=== PATIENT | male | born 1955 | race Caucasian/White ===

== ENCOUNTER 2019-06-06 09:53 | Emergency (ER) | payer OTHER ==
[2019-06-06] MEDS ORDERED: NA CHLORIDE 0.9% 1,000 ML ONE ×2 (10:37→12:30)
[2019-06-06 10:39] LABS: Absolute Lymphocytes (CBC) 0.5 K/uL (0.7-4.9); Basophils % 0.4 % (0-1.3); Hematocrit 33.1 % (39.6-49.0); Lymphocytes % 9.1 % (15.3-44.8); RBC Red Blood Cell Count 3.17 M/uL (4.33-5.43)
[2019-06-06 10:40] LABS: Protime INR 1.11
--- NOTE | 2019-06-06 10:54 | RAD REPORT ---
EXAM DESCRIPTION: RAD - Chest Single View - 06/06/2019 10:37 am CLINICAL HISTORY: Cough, syncope, shortness of breath COMPARISON: None. TECHNIQUE: AP portable chest image was obtained 1034 hours . FINDINGS: Lungs are clear. Heart and vasculature are normal. No measurable pleural effusion and no p neumothorax. No acute bony abnormality seen. No acute aortic findings suspected. IMPRESSION: No acute cardiopulmonary process.
[2019-06-06 11:00] LABS: Blood Morphology Comment NOT SEEN (NOT SEEN); Platelet Estimate DECR; Urine White Blood Cell Casts OK
[2019-06-06 11:15] LABS: ALT/SGPT 33 U/L (12-78); AST/SGOT 19 U/L (15-37); Albumin 3.3 g/dL (3.4-5.0); Alkaline Phosphatase 126 U/L (45-117); BUN Blood Urea Nitrogen 16 mg/dL (7-18); Bicarbonate 26 mmol/L (21-32); Bilirubin Direct 0.1 mg/dL (0-0.2); Bilirubin Total 0.4 mg/dL (0.2-1.0); Glucose Level 256 mg/dL (74-106); Lipase 18 U/L (73-393); NT PRO-BNP 199 pg/mL (<125); Potassium 4.4 mmol/L (3.5-5.1); Protein, Total 6.8 g/dL (6.4-8.2); Sodium Level 140 mmol/L (136-145); Troponin (Emerg Dept Use Only) < 0.02 ng/mL (0.0-0.045)
--- NOTE | 2019-06-06 11:40 | RAD REPORT ---
EXAM DESCRIPTION: CT - Spine Lumbar Wo Con - 06/06/2019 11:16 am CLINICAL HISTORY: Fall, back pain COMPARISON: None. TECHNIQUE: Thin section axial imaging of the lumbar spine was performed. Sagittal and coronal recon struction images were generated and reviewed. All CT scans are performed using dose optimization technique as appropriate and may include automated exposure control or mA/KV adjustment according to patient size. FINDINGS: A lumbosacral transition body is present. This has been labeled L5 for the purposes of thi s study. More superior levels are labeled accordingly. Approximately 20% wedge compression fracture deformity seen in the T12 body. Posterior wall height is preserved. No encroachment into the central canal. This is acute or subacute in appearance and may w ell be attributed to the acute clinical event. No paraspinal mass or hematoma. No pathologic componen t. L1-L5 bodies are normal in height. There is a slight retrolisthesis of L4 on L5. Facet degenerative c hanges are present. No paraspinal mass. No pathologic component. T12-L1 disc level: No significant finding L1-L2 disc level: No herniation or significant disc bulge. No canal or foramen stenosis. Calcificatio n of the posterior ligaments noted with facet degenerative change. L2-3 disc level: Minimal broad-based bulging of disc material evident. No canal or foramen stenosis. Moderate severity facet degenerative change present with partial calcification of the posterior ligam ents. L3-4 level: Prominent bulging of disc material is present across the central canal and into each exit foramen. This is worse on the left. Advanced facet joint degenerative changes are present. Approxima tely 6 millimeter air density is present along the anterior margin of the right facet joint. This is part of degenerative disc disease. There is apparent a joint spaces of each facet. The extension into the central canal may be part of facet hypertrophy or part of a synovial cyst. Canal is 9 mm in the midline. Left greater than right foraminal stenosis is present. L4-5 level: There is a broad-based bulging of disc material across the central canal. Degenerative ga s is present in the disc space. Endplate hypertrophy is present. Bilateral foraminal encroachment cally nges are present without central spinal stenosis. Facet degenerative changes relatively mild. L5-S1 level: This fused or nonmovable disc level shows no significant finding. IMPRESSION: Acute or subacute 20% T12 compression fracture involving the superior endplate. T12 post erior wall is preserved. No canal encroachment. No other acute bone finding. Advanced degenerative change L3-4 level with mild central spinal stenosis and a left greater than rig ht foraminal stenosis. Patient has very advanced facet degenerative change with suspected air contain ing synovial cyst projecting into the central canal creating posterior right encroachment on the thec al sac. Prominent L4-5 degenerative disc disease and posterior element hypertrophy. Bilateral bony foraminal encroachment is present.
[2019-06-06] MEDS ORDERED: Magnesium Sulfate 2gm IVPB 2 G/50 ML BAG IV ONE (12:30)
[2019-06-06 12:34] LABS: Urine Blood TRACE (NEG); Urine Glucose 2+ (NEG); Urine Protein 1+ (NEG); Urine Specific Gravity 1.015 (1.005-1.030); Urine pH 6.5 (5.0-7.0)
[2019-06-06] MEDS ORDERED: FENTANYL CITR 100 MCG/2 ML ONE (12:52)
[2019-06-06] MEDS ORDERED: ONDANSETRON 4 MG/2 ML VIAL ONE (12:52)
--- NOTE | 2019-06-06 13:22 | EDPHYS ---
Physician Documentation [facility] Name: Momo Wang Age: 64 yrs Sex: Male : 1955 Arrival Date: 06/06/2019 Time: 09:55 Bed 14 Private MD: Unknown, Unknown ED Physician Garrick Valenzuela HPI: 06/06 10:18 This 64 yrs old Male presents to ER via Ambulatory with complaints of Fall cally Injury. 10:18 Details of fall: The patient fell from an upright position, while standing. Onset: The cally symptoms/episode began/occurred 1 day(s) ago. Associated injuries: The patient sustained injury to the low back, decreased range of motion, pain. Severity of symptoms: At their worst the symptoms were mild, moderate, in the emergency department the symptoms are unchanged. The patient has not experienced similar symptoms in the past. 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 - Social history:: Smoking status: Patient uses tobacco products, smokes one pack cigarettes per day. - Ebola Screening: : Patient denies travel to an Ebola-affected area in the 21 days before illness onset. - Family history:: not pertinent. ROS: 10:18 Constitutional: Negative for fever, chills, and weight loss, Eyes: Negative for injury, cally pain, redness, and discharge, ENT: Negative for injury, pain, and discharge, Neck: Negative for injury, pain, and swelling, Cardiovascular: Negative for chest pain, palpitations, and edema, Respiratory: Negative for shortness of breath, cough, wheezing, and pleuritic chest pain, Abdomen/GI: Negative for abdominal pain, nausea, vomiting, diarrhea, and constipation, : Negative for injury, bleeding, discharge, and swelling, MS/Extremity: Negative for injury and deformity, Skin: Negative for injury, rash, and discoloration, Psych: Negative for depression, anxiety, suicide ideation, homicidal ideation, and hallucinations, Allergy/Immunology: Negative for hives, rash, and allergies, Endocrine: Negative for neck swelling, polydipsia, polyuria, polyphagia, and marked weight changes, Hematologic/Lymphatic: Negative for swollen nodes, abnormal bleeding, and unusual bruising. 10:18 Back: Positive for decreased range of motion, pain at rest, pain with movement. 10:18 Neuro: Positive for dizziness, weakness. Exam: 10:18 Constitutional: This is a well developed, well nourished patient who is awake, alert, cally and in no acute distress. Head/Face: Normocephalic, atraumatic. Eyes: Pupils equal round and reactive to light, extra-ocular motions intact. Lids and lashes normal. Conjunctiva and sclera are non-icteric and not injected. Cornea within normal limits. Periorbital areas with no swelling, redness, or edema. ENT: Nares patent. No nasal discharge, no septal abnormalities noted. Tympanic membranes are normal and external auditory canals are clear. Oropharynx with no redness, swelling, or masses, exudates, or evidence of obstruction, uvula midline. Mucous membranes moist. Neck: Trachea midline, no thyromegaly or masses palpated, and no cervical lymphadenopathy. Supple, full range of motion without nuchal rigidity, or vertebral point tenderness. No Meningismus. Chest/axilla: Normal chest wall appearance and motion. Nontender with no deformity. No lesions are appreciated. Respiratory: Lungs have equal breath sounds bilaterally, clear to auscultation and percussion. No rales, rhonchi or wheezes noted. No increased work of breathing, no retractions or nasal flaring. Abdomen/GI: Soft, non-tender, with normal bowel sounds. No distension or tympany. No guarding or rebound. No evidence of tenderness throughout. Male : Normal genitalia with no discharge or lesions. Skin: Warm, dry with normal turgor. Normal color with no rashes, no lesions, and no evidence of cellulitis. MS/ Extremity: Pulses equal, no cyanosis. Neurovascular intact. Full, normal range of motion. Neuro: Awake and alert, GCS 15, oriented to person, place, time, and situation. Cranial nerves II-XII grossly intact. Motor strength 5/5 in all extremities. Sensory grossly intact. Cerebellar exam normal. Normal gait. Psych: Awake, alert, with orientation to person, place and time. Behavior, mood, and affect are within normal limits. 10:18 Cardiovascular: Rate: tachycardic, Rhythm: regular, Pulses: no pulse deficits are appreciated, Heart sounds: normal, JVD: is not appreciated. Vital Signs: 10:13 BP 88 / 62; Pulse 109; Resp 20; Temp 97.7; Pulse Ox 95% on R/A; Weight 65.77 kg (R); aj1 Height 5 ft. 11 in. (180.34 cm) (R); Pain 9/10; 10:45 BP 115 / 74; Pulse 90; Resp 18; Pulse Ox 99% on R/A; aj1 11:15 BP 126 / 58; Pulse 85; Resp 18; Pulse Ox 100% on R/A; aj1 11:45 BP 116 / 56; Pulse 80; Resp 18; Pulse Ox 100% on R/A; aj1 12:15 BP 128 / 75; Pulse 77; Resp 18; Pulse Ox 100% on R/A; aj1 12:15 BP 128 / 75 LA Supine (auto/reg); Pulse 84; Resp 15 S; Pulse Ox 100% on R/A; jp3 12:17 BP 120 / 72 LA Sitting (auto/reg); Pulse 90; Resp 11 S; Pulse Ox 100% on R/A; jp3 12:19 BP 97 / 64 LA Standing (auto/reg); Pulse 95; Resp 11 S; Pulse Ox 100% on R/A; jp3 13:07 BP 124 / 65; Pulse 78; Resp 18; Pulse Ox 100% on R/A; aj1 14:26 BP 133 / 74 LA Supine (auto/reg); Pulse 72; Pulse Ox 100% on R/A; jp3 14:28 BP 118 / 82 LA Sitting (auto/reg); Pulse 75; Pulse Ox 100% on R/A; jp3 14:29 BP 111 / 72 LA Standing (auto/reg); Pulse 82; Pulse Ox 100% on R/A; jp3 10:13 Body Mass Index 20.22 (65.77 kg, 180.34 cm) aj1 MDM: 10:00 Patient medically screened. [facility] 10:27 Data reviewed: vital signs, nurses notes, lab test result(s), EKG, radiologic studies, cally plain films. 06/06 10:18 Order name: Basic Metabolic Panel [facility] 06/06 10:18 Order name: CBC with Diff [facility] 06/06 10:18 Order name: LFT's; Complete Time: 11:53 [facility] 06/06 10:18 Order name: Magnesium; Complete Time: 11:53 [facility] 06/06 10:18 Order name: NT PRO-BNP; Complete Time: 11:53 [facility] 06/06 10:18 Order name: PT-INR; Complete Time: 10:58 [facility] 06/06 10:18 Order name: Troponin (emerg Dept Use Only); Complete Time: 11:53 [facility] 06/06 10:18 Order name: XRAY Chest (1 view); Complete Time: 10:58 [facility] 06/06 10:18 Order name: Lipase; Complete Time: 11:53 [facility] 06/06 10:19 Order name: Basic Metabolic Panel; Complete Time: 11:53 [facility] 06/06 10:58 Order name: CT Lumbar Spine Wo Con; Complete Time: 11:53 [facility] 06/06 11:04 Order name: CBC Smear Scan; Complete Time: 11:06 [facility] 06/06 12:27 Order name: Urine Dipstick--Ancillary (enter results); Complete Time: 12:50 [facility] 06/06 10:18 Order name: EKG; Complete Time: 10:20 [facility] 06/06 10:18 Order name: Cardiac monitoring; Complete Time: 10:33 [facility] 06/06 10:18 Order name: EKG - Nurse/Tech; Complete Time: 10:40 [facility] 06/06 10:18 Order name: IV Saline Lock; Complete Time: 10:33 [facility] 06/06 10:18 Order name: Labs collected and sent; Complete Time: 10:33 [facility] 06/06 10:18 Order name: O2 Per Protocol; Complete Time: 10:33 [facility] 06/06 10:18 Order name: O2 Sat Monitoring; Complete Time: 10:33 [facility] 06/06 10:18 Order name: Urine Dipstick-Ancillary (obtain specimen); Complete Time: 12:25 [facility] 06/06 11:55 Order name: Orthostatics; Complete Time: 12:25 [facility] 06/06 11:57 Order name: PO challenge; Complete Time: 13:45 [facility] 06/06 13:21 Order name: Orthostatics; Complete Time: 13:26 [facility] Administered Medications: 10:40 Drug: NS 0.9% 1000 ml Route: IV; Rate: 1 bolus; Site: right antecubital; aj 12:45 Follow up: IV Status: Completed infusion; IV Intake: 1000ml [facility] 12:41 Drug: Magnesium Sulfate 2 grams Route: IVPB; Infused Over: 2 hrs; Site: right [facility] antecubital; 14:57 Follow up: IV Status: Completed infusion; IV Intake: 50ml [facility] 12:41 Drug: NS 0.9% 1000 ml Route: IV; Rate: 1 bolus; Site: right antecubital; [facility] 14:58 Follow up: IV Status: Completed infusion; IV Intake: 1000ml [facility] 12:52 Drug: fentaNYL (PF) 25 mcg {Note: RASS score 0, pt alert .} Route: IVP; Site: right [facility] antecubital; 14:00 Follow up: Response: No adverse reaction; Pain is decreased; RASS: Alert and Calm (0) [facility] 12:52 Drug: Zofran 4 mg Route: IVP; Site: right antecubital; [facility] 14:00 Follow up: Response: No adverse reaction [facility] 14:40 Drug: fentaNYL (PF) 25 mcg {Note: RASS score 0- alert .} Route: IVP; [address]; 14:58 Follow up: Response: No adverse reaction; Pain is decreased; RASS: Alert and Calm (0) [facility] Disposition: 06/06/19 13:21 Discharged to Home. Impression: Fall due to bumping against object, Fracture of unspecified thoracic vertebra - T12 compression , 20%, end plate, Type 2 diabetes mellitus, Dizziness and giddiness, Hypotension, Hypomagnesemia, Volume depletion. - Condition is Stable. - Discharge Instructions: Spinal Compression Fracture, Dehydration, Adult, Type 2 Diabetes Mellitus, Diagnosis, Adult, Dizziness, Hypomagnesemia, Fall Prevention in the Home, [id number], Dehydration, Adult, Qpfl-no-Feux, Type 2 Diabetes Mellitus, Diagnosis, Adult, [id number], Dizziness, [id number]. - Prescriptions for Tylenol- Codeine #3 300-30 mg Oral Tablet - take 2 tablet by ORAL route every 6 hours As needed; 30 tablet. Zofran 4 mg Oral Tablet - take 1 tablet by ORAL route every 12 hours As needed; 20 tablet. magnesium oxide (bulk) - take 400 milligram by ORAL route every 12 hours; 20 tablet. - Medication Reconciliation Form, Thank You Letter, Antibiotic Education, Prescription Opioid Use form. - Follow up: Private Physician; When: 2 - 3 days; Reason: Recheck today's complaints, Continuance of care, Re-evaluation by your physician. - Problem is new. - Symptoms have improved. Signatures: Dispatcher [employer] EDPadma Wright RN RN aj1 Garrick Valenzuela MD MD cha Corrections: (The following items were deleted from the chart) 15:00 13:21 06/06/2019 13:21 Discharged to Home. Impression: Fall due to bumping against aj1 object; Fracture of unspecified thoracic vertebra - T12 compression , 20%, end plate; Type 2 diabetes mellitus; Dizziness and giddiness; Hypotension; Hypomagnesemia; Volume depletion. Condition is Stable. Discharge Instructions: Spinal Compression Fracture, Type 2 Diabetes Mellitus, Diagnosis, Adult, Dizziness, Fall Prevention in the Home, [id number], Type 2 Diabetes Mellitus, Diagnosis, Adult, [id number], Dizziness, Atet-en-Oufo, Hypomagnesemia. Prescriptions for Tylenol-Codeine #3 300-30 mg Oral Tablet - take 2 tablet by ORAL route every 6 hours As needed; 30 tablet, Zofran 4 mg Oral Tablet - take 1 tablet by ORAL route every 12 hours As needed; 20 tablet, magnesium oxide (bulk) - take 400 milligram by ORAL route every 12 hours; 20 tablet. and Forms are Medication Reconciliation Form, Thank You Letter, Antibiotic Education, Prescription Opioid Use. Follow up: Private Physician; When: 2 - 3 days; Reason: Recheck today's complaints, Continuance of care, Re-evaluation by your physician. Problem is new. Symptoms have improved. cally
--- NOTE | 2019-06-06 13:22 | ER ---
Nurse's Notes [facility] Name: Momo Wang Age: 64 yrs Sex: Male : 1955 Arrival Date: 06/06/2019 Time: 09:55 Bed 14 Private MD: Unknown, Unknown Diagnosis: Fall due to bumping against object;Fracture of unspecified thoracic vertebra-T12 compression , 20%, end plate;Type 2 diabetes mellitus;Dizziness and giddiness;Hypotension;Hypomagnesemia;Volume depletion Presentation: 06/06 10:07 Presenting complaint: Patient states: He was getting up to go to the bathroom this aj1 morning at 0230 and he got dizzy, he misjudged where the bed was and fell on on his back. Patient is now complaining of low back pain and lower abdominal pain. Denies hitting head. Transition of care: patient was not received from another setting of care. Onset of symptoms was June 06, 2019 at 02:30. Risk Assessment: Do you want to hurt yourself or someone else? Patient reports no desire to harm self or others. Initial Sepsis Screen: Does the patient meet any 2 criteria? Systolic BP < 90 mmHg. HR > 90 bpm. Yes Does the patient have a suspected source of infection? No. Patient's initial sepsis screen is negative. Care prior to arrival: None. 10:07 Method Of Arrival: Ambulatory aj1 10:07 Acuity: HENRRY 2 aj1 Triage Assessment: 10:17 General: Appears uncomfortable, Behavior is calm, cooperative, appropriate for age. aj1 Pain: Complains of pain in low back area, right lower quadrant and left lower quadrant Pain currently is 9 out of 10 on a pain scale. 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 - Social history:: Smoking status: Patient uses tobacco products, smokes one pack cigarettes per day. - Ebola Screening: : Patient denies travel to an Ebola-affected area in the 21 days before illness onset. - Family history:: not pertinent. Screenin:18 Abuse screen: Denies threats or abuse. Denies injuries from another. Nutritional aj1 screening: No deficits noted. Tuberculosis screening: No symptoms or risk factors identified. 14:55 Fall Risk None identified. aj1 Assessment: 10:18 General: Appears in no apparent distress. uncomfortable, Behavior is calm, cooperative, aj1 appropriate for age. Pain: Complains of pain in left lower quadrant and right lower quadrant and low back area Pain does not radiate. Pain currently is 9 out of 10 on a pain scale. Neuro: Level of Consciousness is awake, alert, obeys commands, Oriented to person, place, time, situation, Gait is steady, with cane. Speech is normal, Facial symmetry appears normal, Reports dizziness. Cardiovascular: Patient's skin is warm and dry. Respiratory: Airway is patent Respiratory effort is even, unlabored, Respiratory pattern is regular, symmetrical. GI: Abdomen is flat, non-distended. : No signs and/or symptoms were reported regarding the genitourinary system. EENT: No signs and/or symptoms were reported regarding the EENT system. Derm: No signs and/or symptoms reported regarding the dermatologic system. Skin is pink, warm \T\ dry. normal. Musculoskeletal: No signs and/or symptoms reported regarding the musculoskeletal system. Circulation, motion, and sensation intact. 11:15 Reassessment: Patient appears in no apparent distress at this time. No changes from aj1 previously documented assessment. Patient and/or family updated on plan of care and expected duration. Pain level reassessed. Patient is alert, oriented x 3, equal unlabored respirations, skin warm/dry/pink. 12:22 Reassessment: Patient and/or family updated on plan of care and expected duration. Pain aj1 level reassessed. General: Appears in no apparent distress. comfortable, Behavior is calm, cooperative, appropriate for age. Neuro: Level of Consciousness is awake, alert, obeys commands, Oriented to person, place, time, situation. Cardiovascular: Patient's skin is warm and dry. Rhythm is sinus rhythm. Respiratory: Airway is patent Respiratory effort is even, unlabored, Respiratory pattern is regular, symmetrical. 13:07 Reassessment: Patient appears in no apparent distress at this time. No changes from aj1 previously documented assessment. Patient and/or family updated on plan of care and expected duration. Pain level reassessed. Patient is alert, oriented x 3, equal unlabored respirations, skin warm/dry/pink. 13:42 Reassessment: Patient discharge pending completion of IV Magnesium. aj1 14:10 Reassessment: Patient appears in no apparent distress at this time. No changes from aj1 previously documented assessment. Patient and/or family updated on plan of care and expected duration. Pain level reassessed. Patient is alert, oriented x 3, equal unlabored respirations, skin warm/dry/pink. Vital Signs: 10:13 BP 88 / 62; Pulse 109; Resp 20; Temp 97.7; Pulse Ox 95% on R/A; Weight 65.77 kg (R); aj1 Height 5 ft. 11 in. (180.34 cm) (R); Pain 9/10; 10:45 BP 115 / 74; Pulse 90; Resp 18; Pulse Ox 99% on R/A; aj1 11:15 BP 126 / 58; Pulse 85; Resp 18; Pulse Ox 100% on R/A; aj1 11:45 BP 116 / 56; Pulse 80; Resp 18; Pulse Ox 100% on R/A; aj1 12:15 BP 128 / 75; Pulse 77; Resp 18; Pulse Ox 100% on R/A; aj1 12:15 BP 128 / 75 LA Supine (auto/reg); Pulse 84; Resp 15 S; Pulse Ox 100% on R/A; jp3 12:17 BP 120 / 72 LA Sitting (auto/reg); Pulse 90; Resp 11 S; Pulse Ox 100% on R/A; jp3 12:19 BP 97 / 64 LA Standing (auto/reg); Pulse 95; Resp 11 S; Pulse Ox 100% on R/A; jp3 13:07 BP 124 / 65; Pulse 78; Resp 18; Pulse Ox 100% on R/A; aj1 14:26 BP 133 / 74 LA Supine (auto/reg); Pulse 72; Pulse Ox 100% on R/A; jp3 14:28 BP 118 / 82 LA Sitting (auto/reg); Pulse 75; Pulse Ox 100% on R/A; jp3 14:29 BP 111 / 72 LA Standing (auto/reg); Pulse 82; Pulse Ox 100% on R/A; jp3 10:13 Body Mass Index 20.22 (65.77 kg, 180.34 cm) aj1 ED Course: 09:55 Patient arrived in ED. ag5 09:55 Garrick Valenzuela MD is Attending Physician. [facility] 09:56 Unknown, Unknown is Private Physician. ag5 10:07 Padma Mckeon, RN is Primary Nurse. aj1 10:10 Triage completed. aj1 10:17 Arm band placed on. aj1 10:18 Patient has correct armband on for positive identification. Bed in low position. Call aj1 light in reach. 10:18 No provider procedures requiring assistance completed. aj1 10:40 XRAY Chest (1 view) In Process Unspecified. EDMS 10:56 EKG done, by ED staff, reviewed by Garrick Valenzuela MD. jb1 11:16 CT completed. Patient tolerated procedure well. Patient moved back from CT. mw3 11:17 CT Lumbar Spine Wo Con In Process Unspecified. EDMS 12:20 Urine collected: clean catch specimen, clear, teagan colored. Patient maintains SpO2 jp3 saturation greater than 95% on room air. 14:54 IV discontinued, intact, bleeding controlled, No redness/swelling at site. Pressure aj1 dressing applied. Administered Medications: 10:40 Drug: NS 0.9% 1000 ml Route: IV; Rate: 1 bolus; Site: right antecubital; aj1 12:45 Follow up: IV Status: Completed infusion; IV Intake: 1000ml aj1 12:41 Drug: Magnesium Sulfate 2 grams Route: IVPB; Infused Over: 2 hrs; Site: right aj1 antecubital; 14:57 Follow up: IV Status: Completed infusion; IV Intake: 50ml aj1 12:41 Drug: NS 0.9% 1000 ml Route: IV; Rate: 1 bolus; Site: right antecubital; aj1 14:58 Follow up: IV Status: Completed infusion; IV Intake: 1000ml aj1 12:52 Drug: fentaNYL (PF) 25 mcg {Note: RASS score 0, pt alert .} Route: IVP; Site: right [facility] antecubital; 14:00 Follow up: Response: No adverse reaction; Pain is decreased; RASS: Alert and Calm (0) aj1 12:52 Drug: Zofran 4 mg Route: IVP; Site: right antecubital; aj1 14:00 Follow up: Response: No adverse reaction aj1 14:40 Drug: fentaNYL (PF) 25 mcg {Note: RASS score 0- alert .} Route: IVP; Site: right 1 antecubital; 14:58 Follow up: Response: No adverse reaction; Pain is decreased; RASS: Alert and Calm (0) aj1 Intake: 12:45 IV: 1000ml; Total: 1000ml. aj1 14:57 IV: 50ml; Total: 1050ml. aj1 14:58 IV: 1000ml; Total: 2050ml. aj1 Outcome: 13:21 Discharge ordered by . cally 14:55 Discharged to home via wheelchair, with family. aj1 14:55 Condition: good 14:55 Discharge instructions given to patient, family, Instructed on discharge instructions, follow up and referral plans. no drinking with medication, no driving heavy equipment, medication usage, Demonstrated understanding of instructions, follow-up care, medications, Prescriptions given X 3. 15:00 Patient left the ED. aj1 Signatures: Dispatcher [employer] EDRiccardo Canseco jb1 Padma Mckeon RN RN aj1 Garrick Valenzuela MD MD cha Willis, Michelle mw3 Paul Quan jp3 Cristi, Sara ag5 Corrections: (The following items were deleted from the chart) 10:13 10:07 Acuity: HENRRY 3 aj1 aj1 10:15 10:07 Initial Sepsis Screen: Does the patient meet any 2 criteria? No. Patient's aj1 initial sepsis screen is negative. Does the patient have a suspected source of infection? No. Patient's initial sepsis screen is negative. aj1
--- NOTE | 2019-06-07 07:37 | EKG ---
Test Date: 2019-06-06 Test Time: 10:38:50 [employer] Hel[employer]: GUERO MEASUREMENT RESULTS: Intervals: Rate: 93 NE: 144 QRSD: 78 QT: 364 QTc: 452 [place]: P: 77 NE: 144 QRS: 31 T: 68 INTERPRETIVE STATEMENTS: Normal sinus rhythm Normal ECG No previous ECG available for comparison Electronically Signed On 06-07-19 07:36:03 CDT by Jake Yousif
== END 2019-06-06 15:00 | disposition home or self-care (01) ==
LOC: ER 09:53
DX: S22.089A Unspecified fracture of T11-T12 vertebra, initial encounter for closed fracture (principal); E86.9 Volume depletion, unspecified; I95.9 Hypotension, unspecified; E83.42 Hypomagnesemia; C34.90 Malignant neoplasm of unspecified part of unspecified bronchus or lung; C77.8 Secondary and unspecified malignant neoplasm of lymph nodes of multiple regions; E11.9 Type 2 diabetes mellitus without complications; F17.210 Nicotine dependence, cigarettes, uncomplicated; W18.00XA Striking against unspecified object with subsequent fall, initial encounter; Y93.89 Activity, other specified; Y92.9 Unspecified place or not applicable; Z88.5 Allergy status to narcotic agent
CPT/HCPCS: 96365; 96361; 93005; 85025; 80048; 36415; 83735; 85610; 80076; 81003; 84484; 83690; 83880; 72131; 71045; 96375; 99285; 96366; J3010; J3475; J7030 ×2; J2405